=== PATIENT | male | born 1950 | race Caucasian/White ===

== ENCOUNTER 2024-02-04 12:23 | Emergency (ER) | payer MEDICARE, OTHER, SELFPAY ==
[2024-02-04 12:24] VITALS: BP 156/75
[2024-02-04 12:48] LABS: % Basophils 0.4 % (0-2); % Immature Granulocytes 1.3 % (0-0.5); % Lymphocytes 23.5 % (20.5-51.1); % Neutrophils 61.8 % (42.2-75.2); Absolute Eosinophils 0.2 10^3/uL (0-0.7); Absolute Immature Granulocytes 0.1 10^3/uL (0-0.05); Absolute Monocytes 0.9 10^3/uL (0.1-0.6); Absolute Neutrophils 5.3 10^3/uL (1.4-6.5); Hematocrit 35.3 % (39.0-52.0); Hemoglobin 12.4 g/dL (13.0-18.0); Mean Corp Hgb Conc. 35.1 g/dL (33.0-37.0); Mean Corpuscular Hgb 30.9 pg (27.0-31.0); Mean Platelet Volume 9.4 fL (7.4-10.4); Nucleated Red Blood Cells % 0 % (-); Platelet Count 268 10^3/uL (130-400); Red Blood Cell Count 4.01 10^6/uL (4.70-6.10); Red Cell Dist. Width 12.9 % (11.5-14.5); White Blood Cell Count 8.5 10^3/uL (4.8-10.8)
[2024-02-04 13:01] LABS: ALT (SGPT) 30 U/L (0-50); AST (SGOT) 26 U/L (17-59); Albumin 4.4 g/dl (3.5-5.0); Alkaline Phosphatase 65 U/L (38-126); Blood Urea Nitrogen 28 mg/dl (9-20); Calcium 9.3 mg/dl (8.4-10.2); Carbon Dioxide 22 mmol/L (22-30); Chloride 105 mmol/L (98-107); Glucose 139 mg/dl (70-99); Potassium 3.9 mmol/L (3.5-5.1); Sodium 140 mmol/L (135-145); Total Bilirubin 0.4 mg/dl (0.2-1.3); Total Protein 7.3 g/dl (6.3-8.2); eGFR > 60.00
[2024-02-04 13:13] LABS: Troponin I < 0.012 ng/ml
[2024-02-04 14:42] VITALS: BP 149/85
[2024-02-04 15:09] LABS: Urine Albumin Negative (Neg - Trace); Urine Bilirubin Negative (Negative); Urine Character Clear (Clear); Urine Color Yellow; Urine Glucose Negative (Negative); Urine Ketone Negative (Negative); Urine Leukocyte Negative (Negative); Urine Nitrite Negative (Negative); Urine Occult Blood Negative (Negative); Urine Specific Gravity 1.015 (<1.030); Urine Urobilinogen Negative (Neg - 1+)
--- NOTE | 2024-02-04 15:16 | ED.GENMED ---
History of Present Illness
General
Chief Complaint: Breathing Problem
Source: patient
Exam Limitations: none
Time Seen by Provider: 02/04/24 14:52
History of Present Illness
History of Present Illness:
73-year-old male presents with dyspnea on exertion starting yesterday. He works as a compliance advisor. He was feeling in a trench yesterday and while shoveling dirt he developed shortness of breath. He also developed discomfort in his jaw. This seems
to have resolved since then. He notes decreased urine output. Currently he denies chest pain or neck pain. He still notes exertional dyspnea today. Denies any leg swelling but did double up on his hydrochlorothiazide. He follows with a
chef de cuisine at [facility] for history of hypertension. He denies a cough. No fever.
Past History
Past History
ED Past Medical History: GERD, HTN and Hypercholesterolemia
ED Past Surgical History: Orthopedic (Left knee replacement)
Social History
Tobacco: Smoker
Alcohol: Occasional
Personal:
Living: with family
Employment: Employed
Family History
Family History: Hypertension
Phy Exam
Physical Exam
Physical Exam:
General: Well-appearing male no acute respiratory distress
HEENT: Normocephalic atraumatic
Heart: Regular rate and rhythm no murmurs
Lungs: Clear no wheeze
Abdomen soft nontender nondistended no guarding rebound normal bowel sounds
Extremities mild edema bilateral lower extremities no cyanosis
Scores
Heart Failure Risk
Heart Failure Risk Score: Not Applicable
Course
Orders/Labs/Results
Orders:
Orders
02/04/24 12:24
EKG [Electrocardiogram (*1)] Urgent
Reason for Study: Shortness of Breath
EKG- Treatment ONCE
02/04/24 12:40
Complete Blood Count/With Diff Urgent
Comprehensive Metabolic Panel Urgent
Troponin I Urgent
02/04/24 14:45
Urinalysis Reflex To Culture Urgent
Date Specimen was Collected: 02/04/24
Time Specimen was Collected: 14:44
02/04/24 15:14
Add On- LAB Urgent
Tests Added?: bnp
CR Chest - 2 Views Urgent
Comment:
Reason For Exam: sob
02/04/24 15:30
NT-proBNP Urgent
Comment: ADD ON
Troponin I Urgent
Abnormal Lab Results
02/04/24
12:40
RBC 4.01 L 10^6/uL
(4.70-6.10)
Hgb 12.4 L g/dL
(13.0-18.0)
Hct 35.3 L %
(39.0-52.0)
Abs Immat Gran (auto) 0.1 H 10^3/uL
(0-0.05)
Absolute Monos (auto) 0.9 H 10^3/uL
(0.1-0.6)
Immature Gran % 1.3 H %
(0-0.5)
Monocytes % 11.0 H %
(1.7-9.3)
BUN 28 H mg/dl
(9-20)
Glucose 139 H mg/dl
(70-99)
02/04/24 12:40
02/04/24 12:40
Vital Signs
Initial and Last Documented VS:
Initial Vital Signs
Temp Pulse Resp BP Pulse Ox
98.6 F 80 18 156/75 97
02/04/24 12:24 02/04/24 12:24 02/04/24 12:24 02/04/24 12:24 02/04/24 12:24
Last Documented Vital Signs
Temp Pulse Resp BP Pulse Ox
98.6 F 69 22 138/72 95
02/04/24 12:24 02/04/24 16:00 02/04/24 16:00 02/04/24 16:00 02/04/24 16:00
MDM/Problems Addressed
Differential Diagnosis Includes:
Dyspnea with exertion. There was some chest discomfort yesterday with exertion. Consider ACS CHF versus general deconditioning. EKG through triage shows normal sinus rhythm without ischemic changes. Labs reviewed through triage shows an
undetectable troponin. BNP added. Will check a second troponin chest x-ray. No risk factors for PE.
*Critical Care Note
Total Time (30-74mins, 75-104mins- exclusive of procedures): Not Applicable
Update Note
Update Note:
Initial and repeat troponins undetectable. BNP negative chest x-ray clear. Labs reviewed without significant finding otherwise. Patient's workup here is negative. Reexamined patient still comfortable. He has seen Dr. Cedeño from cardiology in
the past. Will contact their office for follow-up. Stable for discharge peer return precautions were given
Please note did discuss this with cardiology from [facility] cardiology given the concerning story of exertional dyspnea and discomfort. Given negative workup here and resolution of symptoms. It is reasonable for outpatient follow-up
ED Attending Note
-
Portions of this chart may have been created with voice recognition software.� Occasional wrong word or��sound alike� substitutions may have occurred due to the inherent limitations of voice recognition software.
Discharge Plan
Departure
Patient Disposition: Home (Routine Discharge)
Date of Disposition: 02/04/24
Time of Disposition: 17:23
Patient with high blood pressure during this ER visit?: No
Discharge Problem:
Chest pain
Instructions: Chest Pain CBC Follow Up
Prescriptions:
No Action
oxycodone-acetaminophen 1 TABLET tablet
1 tab PO Q4HPRN PRN (Reason: neck pain)
omeprazole 20 MG capsule,delayed release(DR/EC)
20 mg PO DAILY
lisinopril 40 MG tablet
40 mg PO DAILY Qty: 14 0RF
amlodipine 2.5 MG tablet
2.5 mg PO DAILY Qty: 15 0RF
cephalexin 500 MG capsule
500 mg PO BID Qty: 14 0RF
Referrals:
Hernando Baez, DO [Family Provider] -
Activity Restrictions/Additional Instructions:
Please return here for worsening symptoms otherwise follow-up with cardiology
Interventions
Interventions:
*Risk Screen - Suicide Last Done: 02/04/24 12:24
*General Assessment Last Done: 02/04/24 12:24
*Neglect/Abuse Screening Last Done: 02/04/24 12:24
ED- Fall Risk Assessment Last Done: 02/04/24 14:32
*ED COVID-19 Vaccine History Last Done: 02/04/24 12:24
*Nursing Disposition Last Done: 02/04/24 17:38
ED- Cardiac Assessment Last Done: 02/04/24 14:32
ED- Pulmonary Assessment Last Done: 02/04/24 14:32
Discharge Date and Time
Discharge Date/Time: 02/04/24 17:38
Print Language: PAP[place]
[2024-02-04 16:00] VITALS: BP 138/72
[2024-02-04 16:09] LABS: Troponin I < 0.012 ng/ml
[2024-02-04 16:43] LABS: NT-proBNP 153 pg/ml
== END 2024-02-04 17:38 | disposition home or self-care (01) ==
LOC: EMR 12:23
PROVIDERS: Emergency Medicine; Physician Assistant; EMERGENCY PHYSICIAN Emergency Medicine; FAMILY PHYSICIAN Family Medicine
DX: R07.89 Other chest pain (principal); K21.9 Gastro-esophageal reflux disease without esophagitis; I10 Essential (primary) hypertension; E78.00 Pure hypercholesterolemia, unspecified; F17.200 Nicotine dependence, unspecified, uncomplicated; Z82.49 Family history of ischemic heart disease and other diseases of the circulatory system; Z96.652 Presence of left artificial knee joint
CPT/HCPCS: 99283; 71046; 80053; 81003; 83880; 84484; 85025; 93005

== ENCOUNTER → 2024-03-27 06:41 | Outpatient (REF) | payer MEDICARE, OTHER, SELFPAY | LOC: MRI 06:41 | PROVIDERS: ATTENDING PHYSICIAN Plastic Surgery Surgery of the Hand; FAMILY PHYSICIAN Family Medicine; REFERRING PHYSICIAN Pain Medicine Interventional Pain Medicine | DX: M19.032 Primary osteoarthritis, left wrist (principal) | CPT/HCPCS: 73221 ==

== ENCOUNTER → 2024-03-27 07:59 | Outpatient (REF) | payer MEDICARE, OTHER, SELFPAY | LOC: MRI 07:59 | PROVIDERS: ATTENDING PHYSICIAN Pain Medicine Interventional Pain Medicine; FAMILY PHYSICIAN Family Medicine | DX: M54.12 Radiculopathy, cervical region (principal) | CPT/HCPCS: 72141 ==

== ENCOUNTER → 2024-05-21 08:40 | Outpatient (REF) | payer MEDICARE, OTHER, SELFPAY | LOC: RAD 08:40 | PROVIDERS: ATTENDING PHYSICIAN Neurological Surgery; FAMILY PHYSICIAN Family Medicine | DX: M54.12 Radiculopathy, cervical region (principal); M54.2 Cervicalgia; M96.1 Postlaminectomy syndrome, not elsewhere classified | CPT/HCPCS: 72050; 72110; 72125 ==

== ENCOUNTER → 2024-05-22 06:34 | Outpatient (REF) | payer MEDICARE, OTHER, SELFPAY | LOC: MRI 3T 06:34 | PROVIDERS: ATTENDING PHYSICIAN Neurological Surgery; FAMILY PHYSICIAN Family Medicine | DX: M54.16 Radiculopathy, lumbar region (principal) | CPT/HCPCS: 72148 ==

== ENCOUNTER → 2024-11-01 14:48 | Outpatient (REF) | payer MEDICARE, OTHER, SELFPAY | LOC: HWRCS 14:48 | PROVIDERS: ATTENDING PHYSICIAN Internal Medicine Cardiovascular Disease; FAMILY PHYSICIAN Family Medicine | DX: R06.02 Shortness of breath (principal); I25.10 Atherosclerotic heart disease of native coronary artery without angina pectoris; I10 Essential (primary) hypertension; E78.00 Pure hypercholesterolemia, unspecified | CPT/HCPCS: 93306 ==

== ENCOUNTER 2024-11-13 16:27 | Observation (INO) | payer MEDICARE, OTHER, SELFPAY ==
[2024-11-13] VITALS (8 sets, daily range): BP systolic 118–169; BP diastolic 65–88; BMI 28.3
[2024-11-13 12:14] LABS: Hematocrit 34.1 % (39.0-52.0); Hemoglobin 11.8 g/dL (13.0-18.0); Mean Corp Hgb Conc. 34.6 g/dL (33.0-37.0); Mean Corpuscular Volume 89.3 fL (80.0-94.0); Nucleated Red Blood Cells % 0 % (-); Platelet Count 224 10^3/uL (130-400); Red Cell Dist. Width 13.1 % (11.5-14.5)
[2024-11-13 12:28] LABS: Blood Urea Nitrogen 23 mg/dl (9-20); Calcium 9.1 mg/dl (8.4-10.2); Carbon Dioxide 25 mmol/L (22-30); Chloride 108 mmol/L (98-107); Estimated Creatinine Clearance 70 ml/min; Glucose 99 mg/dl (70-99); Potassium 4.7 mmol/L (3.5-5.1); Sodium 138 mmol/L (135-145); eGFR > 60.00
--- NOTE | 2024-11-13 14:45 | ED.GENMED ---
History of Present Illness
General
Chief Complaint: Musculo-Skeletal Complaint
Source: patient
Time Seen by Provider: 11/13/24 10:34
History of Present Illness
History of Present Illness:
Note:
CHIEF COMPLAINT(S)
Pain and burning sensation in the right hand.
HISTORY OF PRESENT ILLNESS
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 The pain began on night and has progressively worsened to the point where he has
difficulty sleeping. The patient described the pain as starting from the palm and spreading around the hand. He reported that the pain is on fire and significantly worse on the palm and the underside of the hand. The pain has also prevented him from
making a fist, and it increases with passive extension of the third and fourth digits. The patient noted a dog bite or claw scratch from before the onset of the pain. His hands have daily burning and redness, but he mentions this pain is of
a different nature. His background with wrist and hand pain is attributed to occupational 'shovel pain,' indicating chronic conditions due to his work. However, the current pain is distinct and described as severe. Theres swelling observed,
particularly on the dorsal side, with a small skin break noted but minimal signs of infection such as extensive redness or swelling.
PAST SURGICAL HISTORY
The patient has chronic wrist pain, which he attributes to his occupation, but there is no mention of past surgeries in the transcript.
REVIEW OF SYSTEMS
- Musculoskeletal: Pain in the right hand, particularly in the palm and underside, with difficulty making a fist. Pain aggravated by extending the hand.
PHYSICAL EXAM
General: Alert, no acute distress.
Skin: Warm, dry.
Head: Normocephalic, atraumatic.
Neck: Supple, trachea midline.
Eye Ears, nose, mouth and throat: Oral mucosa moist.
Cardiovascular: Normal peripheral perfusion, No edema.
Respiratory: Respirations are non-labored.
Gastrointestinal: Abdomen nondistended
Back: Normal range of motion, Normal alignment.
Musculoskeletal: Pain and swelling in the right hand; difficulty with passive extension of the third and fourth digits, especially at the distal forearm dorsally.
Neurological: Alert and oriented to person, place, time, and situation, No focal neurological deficit observed.
Psychiatric: Cooperative, appropriate mood & affect.
PROBLEM LIST
Acute Problems:
- Right hand pain and burning sensation
- Possible hand infection post-dog bite/claw scratch
CHRONIC MEDICAL CONDITIONS SIGNIFICANTLY AFFECTING CARE
- Chronic wrist pain due to occupational strain
PLAN
- Obtain imaging of the affected hand to rule out any structural abnormalities or foreign bodies.
- Perform basic laboratory work to check for possible infection markers.
- Reassess based on imaging and lab results to determine further treatment steps, potentially including antibiotic therapy if infection is confirmed.
DIFFERENTIAL DIAGNOSIS
The Differential Diagnosis includes, in no particular order and is not limited to:
- Infection (cellulitis) secondary to dog bite/scratch
- Gout
- Tendinitis
- Osteoarthritis exacerbation
- Rheumatoid arthritis
- Injury due to repetitive strain
- Hand fracture or joint dislocation
- Deep vein thrombosis of the hand
- Reflex sympathetic dystrophy
- Lyme disease (from possible animal scratch exposure)
Disposition:
SUMMARY OF ENCOUNTER
The patient, a 74-year-old male with a recent dog bite or scratch on the right hand, presented with escalating pain and swelling in the affected area. Initially, there was minimal redness but increased swelling and abnormal pain were noted by the
patient. Given the nature of the injury and symptoms, there was concern for a potential infection. Inflammatory causes were considered, but infection was prioritized. IV antibiotics (Zosyn) were administered in the emergency department. Laboratory
results showed normal basic metabolic panel (BMP) and white blood cell count. Erythrocyte sedimentation rate (ESR) and C-reactive protein (CRP) were pending.
DISPOSITION
Admit to the hospital for further evaluation and management.
ASSESSMENT
The patient likely has an infection in the right hand following a recent dog bite/scratch.
MANAGEMENT OF THE PATIENTS CARE WAS DISCUSSED WITH
The case was discussed with the hospitalists for inpatient management.
PLAN
- Admit the patient to the hospital for intravenous antibiotic therapy and further diagnostic evaluation.
- Pending results of ESR and CRP to assess for inflammation.
- Consider a hand surgery consultation if required based on further evaluation.
INDEPENDENT REVIEW OF LABS AND INTERPRETATION OF TESTS
My independent review of the basic metabolic panel (BMP) and white blood cell count indicates both are normal.
MEDICATION RECONCILIATION
Patient was administered intravenous Zosyn (piperacillin and tazobactam) as a precaution against infection.
MEDICAL DECISION MAKING
- Number and Complexity of Problems Addressed: Chronic conditions affecting care include chronic wrist pain due to occupational strain. Differential diagnosis considered includes infection (cellulitis) secondary to dog bite/scratch, gout,
tendinitis, osteoarthritis exacerbation, rheumatoid arthritis, injury due to repetitive strain, hand fracture or joint dislocation, deep vein thrombosis of the hand, reflex sympathetic dystrophy, and Lyme disease.
- Data:
- Category 1: Lab tests reviewed, including normal BMP and white blood cell count. ESR and CRP are pending results.
- Category 3: Discussion of management with hospitalists for inpatient care.
- Risk: Prescription medication was prescribed to manage potential infection risk. Consideration of Admission/Observation: Escalation of care including admission/observation was considered given the complexity and risk of the patients presenting
complaint, exam findings, and their underlying comorbidities. However, ultimately I feel the patient is safe for inpatient management. Reasoning: Work-up reassuring, does not reveal any acute life/organ threatening processes! Although patient is
being observed, the treatment plan is appropriate given the current level of findings and concern for potential infection.
DIAGNOSIS
1. Possible cellulitis of the right hand following dog bite/scratch - ICD-10: L03.011
Past History
Past History
ED Past Medical History: GERD, HTN and Hypercholesterolemia
ED Past Surgical History: Orthopedic (Left knee replacement)
Social History
Tobacco: Smoker
Alcohol: Occasional
Personal:
Living: with family
Employment: Employed
Family History
Family History: Hypertension
Phy Exam
Physical Exam
Physical Exam:
.
Course
Orders/Labs/Results
Orders:
Orders
11/13/24 11:01
Hand, Right 3 View [CR Hand - Right Min 3 Views] Urgent
Comment:
Reason For Exam: pain, no trauma
11/13/24 12:05
Basic Metabolic Panel Urgent
Complete Blood Count/With Diff Urgent
11/13/24 14:53
Add On- LAB Urgent
Tests Added?: esr, CRP
Piperacillin/Tazo 3.375 Gram [Zosyn] 3.375 gram in 50 ml IV NOW
Abnormal Lab Results
11/13/24
12:05
RBC 3.82 L 10^6/uL
(4.70-6.10)
Hgb 11.8 L g/dL
(13.0-18.0)
Hct 34.1 L %
(39.0-52.0)
Abs Immat Gran (auto) 0.2 H 10^3/uL
(0-0.05)
Absolute Monos (auto) 0.8 H 10^3/uL
(0.1-0.6)
Immature Gran % 2.1 H %
(0-0.5)
Monocytes % 10.8 H %
(1.7-9.3)
Chloride 108 H mmol/L
(98-107)
BUN 23 H mg/dl
(9-20)
11/13/24 12:05
11/13/24 12:05
Vital Signs
Initial and Last Documented VS:
Initial Vital Signs
Temp Pulse Resp BP Pulse Ox
98.9 F 67 18 169/74 97
11/13/24 09:54 11/13/24 09:54 11/13/24 09:54 11/13/24 09:54 11/13/24 09:54
Last Documented Vital Signs
Temp Pulse Resp BP Pulse Ox
98.6 F 60 20 138/73 96
11/13/24 12:08 11/13/24 12:08 11/13/24 12:08 11/13/24 12:08 11/13/24 14:57
*Pulse Oximetry
SaO2: 96
Oxygen Mode of Delivery: Room air
Patient hypoxic: no
*Critical Care Note
Total Time (30-74mins, 75-104mins- exclusive of procedures): Not Applicable
ED Attending Note
-
Portions of this chart may have been created with voice recognition software.� Occasional wrong word or��sound alike� substitutions may have occurred due to the inherent limitations of voice recognition software.
Discharge Plan
Departure
Patient Disposition: Admit
Date of Disposition: 11/13/24
Time of Disposition: 14:55
Admit to: Med/Surg
Presentation/result/management discussed w/ accepting MD/DO: Hospitalist
Discharge Problem:
Dog bite, possible hand infection
Prescriptions:
No Action
omeprazole 20 MG capsule,delayed release(DR/EC)
20 mg PO DAILY
lisinopril 40 MG tablet
40 mg PO DAILY Qty: 14 0RF
amlodipine 2.5 MG tablet
2.5 mg PO DAILY Qty: 15 0RF
Referrals:
Hernando Baez DO [Family Provider, Family Practice]
Interventions
Interventions:
*Risk Screen - Suicide Last Done: 11/13/24 09:57
*General Assessment Last Done: 11/13/24 09:57
*Neglect/Abuse Screening Last Done: 11/13/24 09:57
*ED- Fall Risk Assessment Last Done: 11/13/24 12:08
*ED COVID-19 Vaccine History Last Done: 11/13/24 09:57
ED-Musculoskeletal Assessment Last Done: 11/13/24 12:08
Discharge Date and Time
Print Language: SERBIAN
[2024-11-13 16:20] LABS: C-Reactive Protein 19.70 mg/L (0.0-10.00)
[2024-11-13] MEDS: ZOSYN 50 IV ×2 (16:38→23:11)
--- NOTE | 2024-11-13 16:58 | EDRN ---
this RN called the receiving unit and notified them that paper report was going to be tubed up
--- NOTE | 2024-11-13 17:05 | HPS.HSE ---
Family Physician
-
Family Physician: Hernando Baez
Chief Complaint
-
Painful swelling of the dorsum part of the right hand and right forearm.
History of Present Illness
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
initially did not pay much attention to it into the last couple of week when the area is becoming more swelled up and painful specially with any kind of movement activity admit the pain was extremely severe worse when he tried to move his hand and
wrist, there is a area in the distal part of the forearm dorsally where the side of the dog claw is new open wound, otherwise deny any fever or chill or cough or congestion or any chest pain or shortness of breath or any weakness or numbness in
extremities, no urinary or GI symptoms.
Therefore decided to come back to the hospital since his pain and swelling is not improving and is becoming erythematous since yesterday night, overall in the ER feels better concern for cellulitis secondary to scratch by dog.
Medical History
Past Medical History
Past Medical History: Reports Other
Additional Past Medical History:
Past medical history:
Hypertension
Dyslipidemia
Osteoarthritis
Coronary artery disease
Chronic back pain
History of multiple lumbar spine injection
Social history: Smokes couple of cigarettes daily and drinks alcohol few days a week only 1 drink and denies any drug and lives with the family,
Family history: Reviewed and noncontributory
Past Surgical History: Reports Other
Social History
Unable to obtain full social history at this time due to: Other
Family History
Family History: Other
Allergies / Home Medications
Allergies reflects when Allergies were last updated in [facility].
Home Medications with original date entered in [facility]
Allergy/Medication List:
Allergies
Allergy/AdvReac Type Severity Reaction Status Date / Time
No Known Allergies Allergy Verified 11/13/24 09:55
Home Medications
omeprazole 20 mg capsule,delayed release 20 mg PO DAILY 08/25/12
lisinopril 40 mg tablet 40 mg PO DAILY #14 tabs 09/07/12
amlodipine 2.5 mg tablet 2.5 mg PO DAILY #15 tabs 12/11/15
diazepam 5 mg tablet (Valium) 5 mg PO HSPRN PRN sleep 11/13/24
diltiazem HCl 180 mg capsule,24 hr,extended release 180 mg PO DAILY 11/13/24
hydralazine 50 mg tablet 50 mg PO BID 11/13/24
hydrochlorothiazide 25 mg tablet 25 mg PO DAILY 11/13/24
oxycodone 10 mg tablet 10 mg PO Q6HPRN PRN severe pains 11/13/24
Review of Systems
-
A 12 point ROS was completed and negative except as noted: Yes
EENT: Reports Other
Physical Exam
Vital Signs
Vital Signs
Temp Pulse Resp BP Pulse Ox
98.6 F 60 20 138/73 95
11/13/24 12:08 11/13/24 12:08 11/13/24 12:08 11/13/24 16:39 11/13/24 16:39
Physical exam:
General: Awake, alert and oriented x3, not in distress and holds appropriate conversation.
HEENT: No active discharge, ecchymosis or bruising, moist lips, tongue and mucous membrane.
Eyes: No discharge or red conjunctiva, no nystagmus, pupils are reactive and equal
Neck:Supple, no JVD no bruit no goiter.
Respiratory: Normal AP contour and diameter, normal chest wall movement, normal respiratory effort, no respiratory distress,
Lungs: Good air entry bilaterally, no wheezing or rhonchi, no rales or crackles
Heart: S1, S2 regular, normal rate, no added sound.
Gastrointestinal: Positive bowel sounds, soft, nontender, no guarding or rigidity or organomegaly
Musculoskeletal: , no chest wall abnormality or tenderness. All joints and extremities have good range of motion, no muscle tenderness or any joint swelling or tenderness.
Extremities: Tender erythematous swelling in the dorsum of the right hand extending proximally to the mid right forearm, with mild swelling in the palm distally, no evidence of compartment syndrome, small scratch around 1 cm in the distal forearm
arm appreciated, good capillary refills,, good peripheral pulses, good range of motion
Skin: Warm and dry, no ulceration, dorsum of the right hand and forearm is a
Neurological: Awake, alert and oriented x3, no facial droop, moves extremities freely, speech clear and comprehensive, good muscle tone,
Psychiatric: Normal mood, normal thought and judgment, normal affect,
Physical Exam
General: Other
Laboratory Results
-
11/13/24 12:05
11/13/24 12:05
Right hand x-ray:
No evidence of acute injury.
Osteoarthritis as described above, severe at the radiocarpal joint.
Data Reviewed
-
Diagnostic Radiology: Image Personally Visualized and interpreted and Discussed with Patient
Lab Data: Labs Reviewed by me and Discussed with Patient
Old Records: Reviewed
Impression/Plan
-
IMPRESSION:
74-year-old male presents with erythematous painful swelling of the right hand few days after being scratched by a dog claw.
Painful swelling of the right hand and forearm, likely secondary to cellulitis caused by a dog scratch
Elevation of the right hand and forearm
Continue IV Zosyn
Pain medication with Tylenol and Oxy as needed
No evidence of compartment syndrome will closely monitor if any worsening then may consider hand surgery consult.
Right hand cellulitis:
As above
Osteoarthritis of the hand:
May need outpatient follow-up with the primary and orthopedic.
Hypertension: Continue to monitor blood pressure continue amlodipine, diltiazem, hydralazine, hydrochlorothiazide and lisinopril.
GERD continue omeprazole
All discussed with the patient in detail and expressed understanding of the question answered
CODE STATUS full code
[2024-11-13] MEDS: LOVENOX 40 MG SC (20:27)
[2024-11-13] MEDS: APRESOLINE 50 MG PO (20:28)
[2024-11-13] MEDS: TYLENOL 650 MG PO (20:37)
[2024-11-14] MEDS: ZOSYN 50 IV ×2 (04:56→10:28)
[2024-11-14 07:00] VITALS: BP 120/63
[2024-11-14] MEDS: ORETIC 25 MG PO (08:24)
[2024-11-14] MEDS: APRESOLINE 50 MG PO (08:24)
[2024-11-14] MEDS: ZESTRIL 40 MG PO (08:25)
[2024-11-14] MEDS: NORVASC 2.5 MG PO (08:25)
[2024-11-14] MEDS: PROTONIX 40 MG PO (08:25)
[2024-11-14] MEDS: CARDIZEM CD 180 MG PO (08:25)
[2024-11-14 09:27] LABS: Hematocrit 35.9 % (39.0-52.0); Hemoglobin 12.3 g/dL (13.0-18.0); Mean Corp Hgb Conc. 34.3 g/dL (33.0-37.0); Mean Corpuscular Volume 89.8 fL (80.0-94.0); Platelet Count 233 10^3/uL (130-400); Red Cell Dist. Width 13.0 % (11.5-14.5)
--- NOTE | 2024-11-14 12:17 | CM ---
BRAYAN met with Leonardo to complete IA. He reports living with his ; declined to provide details of his home. 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
DAVEY provided and reviewed. Leonardo had questions about observation status, as he reports that the doctor told him he was 'being admitted'. I explained that being admitted to the hospital is a plan, however the status of hospitalization (inpatient
or observation) impacts Medicare coverage.
Plan: Pt will return home at discharge with no needs identified needs.
--- NOTE | 2024-11-14 13:14 | W.DS.TRANS ---
DC Summary - Supervisor Beater Room
-
Discharge Instructions:
Discharge Diagnosis/Procedures Right arm cellulitis
Diet Regular
Activity As tolerated
Driving Restrictions As prior to admission
Bathing Restrictions None
Instructions:
Stand-Alone Forms:
Changes to Home Medications: No
Discharge Medications:
DC Medications w/original date entered in [facility]
omeprazole 20 mg capsule,delayed release 20 mg PO DAILY Gastrointestinal Issue 08/25/12
lisinopril 40 mg tablet 40 mg PO DAILY #14 tabs 09/07/12
amlodipine 2.5 mg tablet 2.5 mg PO DAILY #15 tabs 12/11/15
diazepam 5 mg tablet (Valium) 5 mg PO HSPRN PRN sleep 11/13/24
diltiazem HCl 180 mg capsule,24 hr,extended release 180 mg PO DAILY Blood Pressure 11/13/24
hydralazine 50 mg tablet 50 mg PO BID Blood Pressure 11/13/24
hydrochlorothiazide 25 mg tablet 25 mg PO DAILY Fluid Retention/Swelling 11/13/24
oxycodone 10 mg tablet 10 mg PO Q6HPRN PRN severe pains 11/13/24
amoxicillin 875 mg-potassium clavulanate 125 mg tablet 1 tab PO BID #14 tabs 11/14/24
Home Medication Changes
Pending Results: No
--- NOTE | 2024-11-14 14:14 | W.PN.HOSP.TC ---
Today's Communication/Plan
-
Discharge
Assessment / Plan
Assessment / Plan
Gen-AAOx3, NAD
HEENT-NC, AT, anicteric, clear oral mm
Neck-supple
CV-reg, no M, +S1/S2
Lungs-clear B/L
Abd-soft, NT, ND
Ext-no edema
Musculoskeletal-no cyanosis, clubbing
Skin-warm and dry, right arm without erythema, warmth or tenderness
Neuro-grossly non-focal
Psych-calm, cooperative
Right arm cellulitis -due to scratch from patient's dog. Denies dog bite. Cellulitis appears to have resolved. Good range of motion of wrist and fingers. Can change to oral antibiotics and discharge. Recommend outpatient follow-up with PCP.
Ibuprofen as needed for pain.
Essential hypertension -stable.
Hyperlipidemia
Chronic back pain
GERD
Full code
Dispo -stable for discharge home, follow-up with PCP.
32 minutes spent in discharge process.
Anticipated Discharge: Today
Subjective/Interval History
-
Date of Service: November 14, 2024
Patient seen and examined, feeling better, no new complaints.
Objective Data
-
Labs:
Laboratory Results
11/14/24
08:37
WBC 6.7
Hgb 12.3 L
Hct 35.9 L
Plt Count 233
Vital Signs:
Vital Signs
Temp Pulse Resp BP Pulse Ox
98.3 F 60 18 120/63 94
11/14/24 07:00 11/14/24 07:00 11/14/24 07:00 11/14/24 07:00 11/14/24 07:00
I&O
11/13/24 11/14/24 11/15/24
06:59 06:59 06:59
Intake Total 960 / 960
Balance 960 / 960
Review of Systems
-
History Source: Patient
All other systems: Reviewed and negative
== END 2024-11-14 14:15 | disposition home or self-care (01) ==
LOC: 3 WEST ACU 16:27
PROVIDERS: Nurse Practitioner Family; ADMITTING PHYSICIAN Internal Medicine; ATTENDING PHYSICIAN Hospitalist; EMERGENCY PHYSICIAN Emergency Medicine; FAMILY PHYSICIAN Family Medicine
DX: L03.113 Cellulitis of right upper limb (principal); S61.451A Open bite of right hand, initial encounter; W54.0XXA Bitten by dog, initial encounter; K21.9 Gastro-esophageal reflux disease without esophagitis; G89.29 Other chronic pain; Z79.899 Other long term (current) drug therapy; I10 Essential (primary) hypertension; I25.10 Atherosclerotic heart disease of native coronary artery without angina pectoris; F17.200 Nicotine dependence, unspecified, uncomplicated
CPT/HCPCS: 73130; 80048; 85025; 85027; 85652; 86140; 99285; 99406